=== PATIENT | female | born 2000 | race Caucasian/White ===

== ENCOUNTER 2019-03-11 09:54 | Emergency (ER) | payer MEDICAID ==
[~2019-03-11] VITALS: Ht 157.5 cm; Wt 95.3 kg
[2019-03-11] MEDS ORDERED: LEVO50TA8 PO (10:03)
[2019-03-11] MEDS ORDERED: METF-440 PO (10:03)
--- NOTE | 2019-03-11 10:24 | NUR ---
PEDRO FITZPATRICK AT BEDSIDE FOR MSE.
[2019-03-11 11:20] LABS: BASOPHILS % (AUTO) 0.4 % (0.0-2.0); EOSINOPHILS # (AUTO) 0.2 K/uL (0.0-0.7); EOSINOPHILS % (AUTO) 2.1 % (0.0-7.0); HEMATOCRIT 35.8 % (31.2-41.9); HEMOGLOBIN 11.6 g/dL (10.9-14.3); LYMPHOCYTES # (AUTO) 2.5 K/uL (20.0-40.0); LYMPHOCYTES % (AUTO) 23.6 % (20.5-74.5); MEAN CORPUSCULAR HEMOGLOBIN 23.4 uug (24.7-32.8); MEAN CORPUSCULAR HGB CONC 32 g/dL (32.3-35.6); MEAN CORPUSCULAR VOLUME 72.6 fL (75.5-95.3); MONOCYTES # (AUTO) 0.8 K/uL (2.0-10.0); MONOCYTES % (AUTO) 7.6 % (0-11); NEUTROPHILS # (AUTO) 6.9 K/uL (1.8-8.9); NEUTROPHILS % (AUTO) 66.3 % (31.5-64.5); PLATELET COUNT (AUTO) 281 K/uL (179-408); RED BLOOD CELL COUNT(AUTO) 4.93 MIL/uL (3.63-4.92); WHITE BLOOD COUNT (AUTO) 10.4 K/uL (3.8-11.8)
[2019-03-11 11:25] LABS: CREATININE 0.7 mg/dL (0.6-1.3); POTASSIUM 4.2 mmol/L (3.5-5.1)
[2019-03-11 11:31] LABS: BILIRUBIN,DIRECT 0.1 mg/dL (0.0-0.2); BILIRUBIN,TOTAL 0.5 mg/dL (0.2-1.0); TOTAL PROTEIN, SERUM 7.3 g/dL (6.4-8.2)
[2019-03-11 11:47] LABS: *BILIRUBIN,URIN NEGATIVE (NEGATIVE); *BLOOD, URINE NEGATIVE (NEGATIVE); *CLARITY,URINE SLIGHTLY CLOUDY (CLEAR); *COLOR,URINE YELLOW (YELLOW); *KETONES,URINE NEGATIVE (NEGATIVE); *UROBILINOGEN,URINE 0.2 E.U./dl (NORMAL); LEUKOCYTE ESTERASE ,URINE 1+ (NEGATIVE); NITRITE, URINE NEGATIVE (NEGATIVE); PH,URINE 6.5 (5.0-8.0); UGLUCOSE NEGATIVE (NEGATIVE)
[2019-03-11 11:53] LABS: BACTERIA,URINE FEW /HPF (NONE SEEN); RBC,URINE NONE SEEN /HPF (0-3); SQUAMOUS EPITHELIAL CELL,UR MODERATE /HPF (NONE SEEN)
[2019-03-11 12:45] LABS: EOSINOPHILS % (MANUAL) 2 % (0-8); LYMPHOCYTES % (MANUAL) 27 % (38-48); NEUTROPHILS % (MANUAL) 64 % (40-55)
[2019-03-11 12:46] LABS: MONOCYTES % (MANUAL) 7 % (2-10)
--- NOTE | 2019-03-11 12:53 | NUR ---
Patient discharged to home in stable conditon. Written and verbal after care instructions given. Patient verbalizes understanding of instructions. ALL BELONGINGS W/ PT. PT SELF-AMBULATED W/O DIFFICULTY.
[2019-03-11 12:54] VITALS: BP 133/72
== END 2019-03-11 12:55 | disposition home or self-care (01) ==
LOC: ER 09:54
DX: N12 Tubulo-interstitial nephritis, not specified as acute or chronic (principal); Z91.010 Allergy to peanuts; Z79.899 Other long term (current) drug therapy
CPT/HCPCS: 36415; 70030-TC; 83690; 85025; 87086; A4663

== ENCOUNTER 2021-05-31 14:04 | Emergency (ER) | payer BC, OTHER ==
[~2021-05-31] VITALS: Ht 157.5 cm; Wt 90.7 kg
[~2021-05-31 14:04] MED LIST: LEVO50TA8 PO; METF-440 PO
--- NOTE | 2021-05-31 14:36 | NUR ---
PT IS IN ROOM #1A. DR AMBROSIO EVALUATED THE PT.
[2021-05-31 17:22] LABS: CREATININE 0.8 mg/dL (0.6-1.3); HEMATOCRIT 37.2 % (31.2-41.9); PLATELET COUNT (AUTO) 320 K/uL (179-408)
[2021-05-31] MEDS ORDERED: IBUPROFEN 600 MG TABLET ONE (17:59)
[2021-05-31] MEDS ORDERED: IBUPROFEN 600 MG TABLET PO ONE (18:00)
--- NOTE | 2021-05-31 19:05 | NUR ---
PT WAS D/C'd TO HOME AFTER DR AMBROSIO EVALUATION. D/C INSTRUCTIONS GIVEN TO THE PT BY DR AMBROSIO.
[2021-05-31 19:06] VITALS: BP 129/73
== END 2021-05-31 19:06 | disposition home or self-care (01) ==
LOC: ER 14:04
DX: R07.9 Chest pain, unspecified (principal); J06.9 Acute upper respiratory infection, unspecified; Z20.822 Contact with and (suspected) exposure to COVID-19; E07.9 Disorder of thyroid, unspecified; E28.2 Polycystic ovarian syndrome; Z91.010 Allergy to peanuts; Z79.84 Long term (current) use of oral hypoglycemic drugs; Z79.890 Hormone replacement therapy
CPT/HCPCS: 36415; 70030-TC; 71045; 85025; 93005; A4663